=== PATIENT | male | born 1945 | race Caucasian/White ===

== ENCOUNTER 2021-01-06 07:10 | Outpatient (CLI) | payer MEDICARE, OTHER, SELFPAY ==
[2021-01-06 07:44] LABS: Alanine Aminotransferase 21 U/L (4-50); Albumin Level 3.8 g/dL (3.5-5.1); Alkaline Phosphatase 125 U/L (38-126); Anion Gap 13 mmol/L (8-16); Aspartate Amino Transferase 20 U/L (17-59); Bilirubin,Total 0.3 mg/dL (0.2-1.3); Blood Urea Nitrogen 50 mg/dL (9-20); Calcium 9.2 mg/dL (8.4-10.2); Carbon Dioxide 16 mmol/L (22-30); Chloride 114 mmol/L (98-107); Cholesterol 91 mg/dL (0-200); Estimated Glomerular Filt Rate 39; Glucose 118 mg/dL (75-110); HDL Direct 20 mg/dL; Potassium 4.2 mmol/L (3.4-5.0); Sodium 143 mmol/L (137-145); Triglycerides 173 mg/dL (<150)
[2021-01-06 07:56] LABS: LDL Cholesterol Direct 33 mg/dL
== END 2021-01-06 07:11 | disposition home or self-care (01) ==
PROVIDERS: PCP Emergency Medicine; Visit Provider Emergency Medicine
DX: I10 Essential (primary) hypertension (principal)
CPT/HCPCS: 36415; 80053; 80061

== ENCOUNTER 2023-01-04 11:15 | Outpatient (RCR) | payer MEDICARE, OTHER, SELFPAY ==
--- NOTE | 2022-11-12 10:48 | PTOPEVAL1 ---
Assessment and note entered by Trista Dang, PT Evaluation Information Assessment Status Evaluation Diagnosis ORIF R hip s/p fall Onset Sep 02, 2022 Subjective Information after surgery, went to in pt rehab, [facility] therapy- d/c last week; use wheeled walker or cane for walking; continues to do the standing exercises at home--20 reps; able to tolerate about 1 hour of activity; standing time with cooking 10-15 minutes--he usually does the cooking; is not driving; is doing Ok on his stairs at home; Reported Pain Level Pain Score Self Report Additional Pain Score Comments pain range in the past week 2-510; increase pain with standing, walking; decrease pain with rest, change position with pillow under knee; take tylenol 7-8x/wk; sleep is OK- have sleep apnea machine; Assessment PT Clinical Summary Jesus Manuel has the diagnosis of s/p R ORIF hip fracture, due to fall. He has had in pt rehab and [facility] therapy. His Giselle was present during eval and supportive to pt. He reports decrease standing, walking and activity--prior to fall, was indep and active with all tasks. Has not been driving since surgery. Around the home, is doing OK with mobility and stairs. With the evaluation, he has decreased strength of R hip and knee, using the cane or wheeled walker for ambulation; TUG time of 18 seconds, 2 minute walking distance of 300' with wheeled walker and Jj balance score of 50/56. Skilled PT services are indicated for therapeutic exercises and activities to increase LE strength, gait and balance skills, with progression of HEP as tolerated and gait to cane. Plan of Care Interventions Gait Training,Hot Pack/Cold Pack,Manual Therapy, Neuro Re-education,Patient/Caregiver Education, Therapeutic Activities,Therapeutic Exercise PT Services Indicated Yes Treatment Frequency and 2x/wk for 5 weeks Duration These treatments will address the objective and functional deficits as defined above. The patient will be advanced safely and appropriately in order for the patient to progress towards his/her prior level of function. Additional exercises will be introduced and as well as a comprehensive home exercise program upon discharge, if needed, ?to ensure carryover of functional gains achieved in the clinic. This treatment plan has been reviewed and agreement upon by the patient.
--- NOTE | 2022-11-12 10:49 | PTOPEVAL1 ---
Assessment and note entered by Trista Dang, PT Evaluation Information Assessment Status Evaluation Diagnosis ORIF R hip s/p fall Onset Sep 02, 2022 Subjective Information after surgery, went to in pt rehab, [facility] therapy- d /c last week; use wheeled walker or cane for walking; continues to do the standing exercises at home--20 reps; able to tolerate about 1 hour of activity; standing time with cooking 10-15 minutes--he usually does the cooking; is not driving; is doing Ok on his stairs at home; Reported Pain Level Pain Score Self Report Additional Pain Score Comments pain range in the past week 2-510; increase pain with standing, walking; decrease pain with rest, change position with pillow under knee; take tylenol 7-8x/wk; sleep is OK- have sleep apnea machine; Assessment PT Clinical Summary Jesus Manuel has the diagnosis of s/p R ORIF hip fracture, due to fall. He has had in pt rehab and [facility] therapy. His Giselle was present during eval and supportive to pt. He reports decrease standing, walking and activity--prior to fall, was indep and active with all tasks. Has not been driving since surgery. Around the home, is doing OK with mobility and stairs. With the evaluation, he has decreased strength of R hip and knee, using the cane or wheeled walker for ambulation; TUG time of 18 seconds, 2 minute walking distance of 300' with wheeled walker and Jj balance score of 50/56. Skilled PT services are indicated for therapeutic exercises and activities to increase LE strength, gait and balance skills, with progression of HEP as tolerated and gait to cane. Plan of Care Interventions Gait Training,Hot Pack/Cold Pack,Manual Therapy, Neuro Re-education,Patient/Caregiver Education, Therapeutic Activities,Therapeutic Exercise PT Services Indicated Yes Treatment Frequency and 2x/wk for 5 weeks Duration These treatments will address the objective and functional deficits as defined above. The patient will be advanced safely and appropriately in order for the patient to progress towards his/her prior level of function. Additional exercises will be introduced and as well as a comprehensive home exercise program upon discharge, if needed, ?to ensure carryover of functional gains achieved in the clinic. This treatment plan has been reviewed and agreement upon by the patient.
--- NOTE | 2022-12-09 09:53 | PCPTNOTE ---
Pt cancelled today and rescheduled for next week.
--- NOTE | 2022-12-14 08:03 | PCPTNOTE ---
Pt cancelled due to continued illness from last week.
--- NOTE | 2022-12-17 10:58 | PTOPPROG ---
Assessment and note entered by Trista Dang, PT Evaluation Information Assessment Status Progress Diagnosis ORIF R hip s/p fall Onset Sep 02, 2022 Subjective Information Jesus Manuel reports: saw dr yesterday, they did xray and hip looks OK; hip pain is worse; problems walking, sleeping; PAIN: range in the past week 3-6/10; buttock tight and squeezing; decrease pain with rest, supine with knee flexion /pillow under leg; take tylenol, increase pain with walking, standing, sit to stand up/standing 3-4 minutes then have to sit down; problems getting comfortable to fall asleep; have not been using heat/ice--educated on PRN use; Assessment PT Clinical Summary Jesus Manuel has received 9 PT sessions; he recently saw ortho dr and hip xray was good; to see rabbet operator next month and recently saw general dr. Compared to the initial evaluation: pain is increased by 1 at the low and high ratings; is not yet driving; 5 reps sit/stand time improved, but he used his UE today; TUG time is 2 sec more; 2 minute walking test is 160' less and L hip strength is slightly less with mat exercises and single leg standing; Jj balance score is the same; supine hip flexion is less- 80'; He states he wants to be able to walk without the walker and get back to normal activities like used to do. During PT sessions, his activity level is limited due to pain and fatigue. Reinforced with him and his today, that he needs to do the exercises at home, walk more and use heat/ice for pain. The goals were partially achieved. Will continue PT for 3 more weeks, emphasized to pt that if he has not improved, he will be discharged at that time. Plan of Care Interventions Hot Pack/Cold Pack,Manual Therapy,Neuro Re- education,Patient/Caregiver Education,Therapeutic Activities,Therapeutic Exercise,Other Other Interventions taping [facility] PT Services Indicated Yes Treatment Frequency and 2x/wk for 3 weeks Duration These treatments will address the objective and functional deficits as defined above. The patient will be advanced safely and appropriately in order for the patient to progress towa
--- NOTE | 2022-12-31 11:36 | PCPTNOTE ---
Pt cancelled today due to illness today.
--- NOTE | 2023-01-07 10:57 | PTOPDC ---
Assessment and note entered by Trista Dang, PT Evaluation Information Assessment Status Discharge - Pt Not Present Diagnosis ORIF R hip s/p fall Onset Sep 02, 2022 Assessment PT Clinical Summary Austin has received 13 PT sessions. He called and canceled the reevaluation appt and stated he did not want any further PT. Goals were not addressed. Discharge PT services. Plan of Care PT Services Indicated No
== END 2023-01-07 13:28 | disposition home or self-care (01) ==
LOC: ANHPT 11:15
DX: S72.001D Fracture of unspecified part of neck of right femur, subsequent encounter for closed fracture with routine healing (principal)
CPT/HCPCS: 97110; 97112; 97116; 97140; 97161; 97530